=== PATIENT | female | born 1990 | race Caucasian/White ===

== ENCOUNTER 2018-10-03 09:35 | Emergency (ER) | payer SELFPAY ==
[2018-10-03 09:52] VITALS: BP 137/92
[2018-10-03] MEDS ORDERED: ALBUTEROL SULFATE 2.5 MG/3 ML AMPUL.NEB NEB ONE ×2 (10:09→11:10)
[2018-10-03] MEDS ORDERED: ACETAMINOPHEN 500 MG TABLET PO ONE (10:10)
[2018-10-03] MEDS ORDERED: IBUPROFEN 400 MG TABLET PO ONE (10:11)
[2018-10-03 10:47] LABS: EOSINOPHILS % 2.4 % (0.0-6.8); MEAN CORPUSCULAR HEMOGLOBIN 26.6 pg (28.0-34.0); MONOCYTES % 5.3 % (0.0-11.0); NEUTROPHILS # 9.6 # k/uL (1.4-7.7)
[2018-10-03 10:53] LABS: eGFR (Non-African) > 60
[2018-10-03] MEDS ORDERED: GUAIFENESIN/CODEINE 10 ML S/F LIQUID DOSE CUP PO ONE (11:08)
--- NOTE | 2018-10-03 11:23 | ED Physician Documentation ---
Upper Respiratory Symptoms - HPI Stated Complaint: ear pain and cough Chief Complaint: Upper Respiratory Symptoms Onset: days ago, other (cough x 1 month) Associated Symptoms: fever, earache, productive cough, shortness of breath Further Comments: yes - ROS CONST/EYES: denies: weakness, eye redness, eye itching, other CVS/RESP: none LYMPH: denies: leg swelling, rash, swollen glands, ankle swelling, other GI/: none NEURO/PSYCH: denies: fainting, dizziness, confusion, anxiety, depression, other MS/SKIN: denies: joint pain, muscle aches, rash, other - PAST HX Lung Disease: none Surgeries/Procedures: none Allergies/Adverse Reactions: Allergies Allergy/AdvReac Type Severity Reaction Status Date / Time iodine Allergy Verified 10/03/18 09:53 latex Allergy Verified 10/03/18 09:53 morphine Allergy Verified 10/03/18 09:53 Home Medications: Ambulatory Orders Medication Instructions Recorded Levofloxacin [Levaquin] 750 mg PO DAILY #7 tablet 10/03/18 - SOCIAL HX Smoking History: non-smoker - FAMILY HX Family History: denies: none - VITAL SIGNS Vital Signs: Vital Signs Temp Pulse Resp BP Pulse Ox 97.9 F 95 H 16 137/92 100 10/03/18 09:39 10/03/18 11:27 10/03/18 09:39 10/03/18 09:39 10/03/18 11:27 - REVIEWED ASSESSMENTS Nursing Assessment Reviewed: Yes Vitals Reviewed: Yes Progress - Progress Progress: Increased wheezing after first neb; Sat 96% - repeated albuterol Coughing improving. Chest xray with bilateral hilar haziness; will treat as pneumonia. Patient does not have prescription insurance. Good Rx coupons provided for albuterol, levaquin and robitussin AC. RA Sat 98-100% while in the ER. Patient does not qualify for inpatient stay. Reviewed discharge instructions with patient and sister - verbalized understanding. ED Results Lab/Radiology - Lab Results Lab Results: Lab Results 10/03/18 10/03/18 10:10 10:10 WBC 13.80 K/ul H K/ul (4.00-12.00) RBC 4.77 M/ul M/ul (3.90-5.20) Hgb 12.7 g/dL g/dL (12.0-16.0) Hct 39.0 % % (34.5-46.5) MCV 82.0 fl fl (80.0-100.0) MCH 26.6 pg L pg (28.0-34.0) MCHC 32.6 g/dL g/dL (30.0-36.0) RDW 13.9 % % (11.3-14.3) Plt Count 392 K/mm3 K/mm3 (130-400) Neut % (Auto) 69.5 % % (39.0-79.0) Lymph % (Auto) 21.8 % % (16.0-50.0) [place] % (Auto) 5.3 % % (0.0-11.0) Eos % (Auto) 2.4 % % (0.0-6.8) Baso % (Auto) 1.0 (0.0-1.5) Neut # (Auto) 9.6 # k/uL H # k/uL (1.4-7.7) Lymph # (Auto) 3.0 # k/uL # k/uL (0.6-4.0) [place] # (Auto) 0.7 # k/uL # k/uL (0.0-0.9) Eos # (Auto) 0.3 # k/uL # k/uL (0.0-0.6) Baso # (Auto) 0.1 # k/uL # k/uL (0.0-0.5) Sodium 141 mmol/L mmol/L (136-145) Potassium 4.0 mmol/L mmol/L (3.5-5.1) Chloride 102 mmol/L mmol/L (98-107) Carbon Dioxide 25 mmol/L mmol/L (22-30) BUN 7 mg/dL mg/dL (7-17) Creatinine 0.67 mg/dL mg/dL (0.52-1.04) Estimated Creat Clear 246 Est GFR ( Amer) > 60 (60 - ) Est GFR (Non-Af Amer) > 60 (60 - ) Glucose 145 mg/dL H mg/dL (74-106) Calcium 8.8 mg/dL mg/dL (8.4-10.2) - Radiology Radiology Impressions: Examination: PA and lateral chest. History: Evaluate lung barnes. Comparison exam: None provided. Findings: PA and lateral views of the chest demonstrates a normal cardiac and mediastinal silhouette. Bilateral hilar linear densities. No blunting of the costophrenic margins. Osseous structures are appropriate for age. Impression: Bilateral hilar infiltrates. No effusion. Electronically signed on Oct 03, 2018 11:06:59 AM CDT by: Alex Cordoba - Orders Orders: ED Orders Category Date Time Status CHEST 2VIEW [RAD] Stat Exams 10/03/18 10:09 Ordered BMP Stat Lab 10/03/18 10:10 Completed CBC/PLATELET/DIFF Stat Lab 10/03/18 10:10 Completed Acetaminophen [Tylenol Extra Strength] Med 10/03/18 10:10 Discontinued 1,000 mg PO NOW ONE Albuterol Sulfate [Ventolin Soln] Med 10/03/18 10:09 Discontinued 2.5 mg NEB NOW ONE Albuterol Sulfate [Ventolin Soln] Med 10/03/18 11:10 Once 2.5 mg NEB NOW ONE Codeine Phosphate/Guaifenesin [Robitussin AC] Med 10/03/18 11:08 Once 10 ml PO NOW ONE Ibuprofen [Advil] Med 10/03/18 10:11 Discontinued 800 mg PO NOW ONE Upper Respiratory Symptoms - EXAM General Appearance: mild distress EENT: eyes nml inspection, nml ENT inspection, lids & conjunct. nml, PERRL, TM erythema, nose nml, pharynx nml, airway nml, other (Right TM with bulging and erythema) Respiratory: no resp. distress, breath sounds nml, no pain on inspiration, speaks full sentences, no pleuritic chest pain Abdomen: non-tender, no organomegaly, nml bowel sounds, no distention CVS: reg rate & rhythm, heart sounds normal, equal pulses, no murmur, no gallop, PMI nml, no JVD, no friction rub, 24 Skin: color nml, no rash, warm,dry Extremities: non-tender, normal range of motion, no evidence of injury, no edema, J, [employer] Neuro/Psych: oriented x3, neuro intact, mood/affect nml, CN's nml as tested Discharge Clincal Impression: Bilateral pneumonia Qualifiers: Pneumonia type: due to unspecified organism Lung location: unspecified part of lung Qualified Code(s): J18.9 - Pneumonia, unspecified organism Bilateral otitis media Qualifiers: Otitis media type: suppurative Chronicity: acute Recurrence: non-recurrent Spontaneous tympanic membrane rupture: without spontaneous rupture Qualified Code(s): H66.003 - Acute suppurative otitis media without spontaneous rupture of ear drum, bilateral Prescriptions: Levofloxacin [Levaquin] 750 mg PO DAILY #7 tablet Referrals: Primary Doctor,No [Primary Care Provider] - 2 Days Additional Instructions: 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 Use a cotton ball in both ears when you shower. The right ear drum may rupture - if this happens you can expect a large amount of drainage for 1-2 days. The ear drum repairs it's self quickly. Keep a clean cotton ball in the ear canal to absorb the drainage. Rest You may want to try Vicks rub on your chest and/or feet. Cough drops as needed for cough and sore throat. Increase your fluid intake juices, hot tea, non-caffeinated beverages Vitamin C may be helpful in decreasing the length of your cold. Use a humidifier in the room where you sleep. You can also sit in a steam filled bathroom 1-2 times a day. Tylenol every 4 hours 650mg -1000mg (do not exceed 4000mg in 24 hours) as needed for fever, pain and body aches. Alternate with Ibuprofen Ibuprofen 600-800mg every 6 hours as needed for fever, pain and body aches. See your primary care doctor if your symptoms become worse or do not improve in the next 2-3 days or return to the ER. Condition: Stable Disposition: 01 HOME, SELF-CARE Decision to Admit: NO Decision Time: 11:23
--- NOTE | 2018-10-03 22:13 | Diagnostic Imaging Report ---
JASMIN ESCALONA (ROLL REPAIRER) - ER [facility] [address] [facility] [address] [place], [place]. [id number] Report Submission Date: Oct 03, 2018 11:06:59 AM CDT Patient Study Name: ZAC LARKIN Date: Oct 03, 2018 10:27:23 AM CDT Modality Type: DX Gender: F Description: CHEST 2VIEW : 89 Institution: [facility] Physician: JASMIN ESCALONA (MYRTLE) - ER Examination: PA and lateral chest. History: Evaluate lung banres. Comparison exam: None provided. Findings: PA and lateral views of the chest demonstrates a normal cardiac and mediastinal silhouette. Bilateral hilar linear densities. No blunting of the costophrenic margins. Osseous structures are appropriate for age. Impression: Bilateral hilar infiltrates. No effusion. Electronically signed on Oct 03, 2018 11:06:59 AM CDT by: Alex BOLTON
== END 2018-10-03 11:38 | disposition home or self-care (01) ==
LOC: ED 09:35
DX: J18.9 Pneumonia, unspecified organism (principal); H66.003 Acute suppurative otitis media without spontaneous rupture of ear drum, bilateral
CPT/HCPCS: 36415; 71046; 80048; 85025; 87400; 94640; 99283; 99284

== ENCOUNTER 2019-04-07 13:48 | Emergency (ER) | payer SELFPAY ==
--- NOTE | 2019-04-07 14:11 | ED Physician Documentation ---
Female Urogenital Problems - HISTORIAN Historian: patient - HPI Stated Complaint: vaginal bleeding (6 pads since 8 pm yesterday) Chief Complaint: Female Urogenital Problems Onset: days ago (1) Severity: moderate Location of Pain: denies: abdominal pain, pelvic pain, low back pain, vaginal pain Further Comments: yes (She is concerned her period was just on 03.18.2019 and she feels she might have a tear in the area between her vagina and rectum- she denies pain but thinks this is where the blood is coming from due to just having a period per her report. No vaginal pain. No cramps. No low back pain. She has had 6 pads since 8 pm 04.06.2019. Denies any other complaints) - Vaginal Bleeding Compared to Menstrual Periods: similiar Description of Menstrual: other (usually normal ) Sexual History: active Contraceptive: none - Associated Symptoms Urinary Symptoms: none Discharge: denies: vaginal discharge, vaginal fluid leakage, odorous discharge, yellowish discharge - ROS CONST: none GI/: denies: nausea, vomiting CVS/RESP: none EYES/ENT: none NEURO/PSYCH: denies: headache, dizzy MS/SKIN/LYMPH: none - PAST HX Past History: none Allergies/Adverse Reactions: Allergies Allergy/AdvReac Type Severity Reaction Status Date / Time iodine Allergy Verified 04/07/19 14:05 latex Allergy Verified 04/07/19 14:05 morphine Allergy Verified 04/07/19 14:05 Home Medications: Ambulatory Orders Medication Instructions Recorded NK 04/07/19 - SOCIAL HX Smoking History: non-smoker Alcohol Use: none Drug Use: methamphetamines - FAMILY HX Family History: none - VITAL SIGNS Vital Signs: Vital Signs Temp Pulse Resp BP Pulse Ox 137/92 10/03/18 11:40 - REVIEWED ASSESSMENTS Nursing Assessment Reviewed: Yes Vitals Reviewed: Yes Female Urogenital Problems - EXAM General Appearance: no acute distress, alert EENT: eye inspection normal, no signs of dehydration Neck: nml inspection Respiratory: no resp. distress, breath sounds nml CVS: reg rate & rhythm, heart sounds normal Abdomen: soft, non-tender, nml bowel sounds Rectal: normal exam, normal rectal tone Pelvic: external exam nml, speculum exam nml, active bleeding, moderate (inside vaginal valut ). No: blood clots in vault Back: non-tender, painless ROM Skin: color nml, no rash, warm,dry Extremities: non-tender, no edema Neuro: oriented X3 Discharge Clincal Impression: Vaginal bleeding Referrals: Primary Doctor,No [Primary Care Provider] - 2 Days Comments: 1. Increase fluids 2. Rest 3. Follow up with PCP or OBGYN 4. Return to ER for any increasing concerns Condition: Stable Disposition: 01 HOME, SELF-CARE Decision to Admit: NO Date of Decison to Admit: 04/07/19 Decision Time: 14:22
[2019-04-07 14:28] VITALS: BP 127/83
== END 2019-04-07 14:27 | disposition home or self-care (01) ==
LOC: ED 13:48
DX: N93.9 Abnormal uterine and vaginal bleeding, unspecified (principal)
CPT/HCPCS: 99281; 99282